=== PATIENT | female | born 1960 | race Caucasian/White ===

== ENCOUNTER 2018-12-23 12:58 | Inpatient (IN) ==
--- NOTE | 2018-12-23 13:30 | Diag Imaging Result Doc PS360 ---
EXAM: FLAT/UPRIGHT ABD/1 VIEW CHEST HISTORY: abdominal pain/constipation TECHNIQUE: Flat and upright with chest, three views COMPARISON: None. FINDINGS: The lungs are well expanded. No pneumonia. No cardiomegaly. No free air beneath the diaphragm. There is a catheter in the mid abdomen. Several air-fluid levels in the upper abdomen. There is air in the distal colon. No organomegaly. Mild scoliosis with degenerative spine changes. There are surgical clips overlying the right upper quadrant and pelvis. IMPRESSION: Ileus versus partial obstruction. Electronically signed by Rocco Osei 12/23/2018 1:27 PM
[2018-12-23 13:37] LABS: BASO# 0.03 X1000 (0.0-0.2); BASO% 0.4 % (0.0-0.8); EOS% 1.2 % (0.0-10.0); HEMATOCRIT 42.4 % (37.0-47.0); HEMOGLOBIN 14.6 g/dL (12.0-16.0); LYMPH# 0.68 X1000 (1.2-3.4); LYMPH% 8.2 % (20.5-51.1); MCH 28.9 PG (27-31); MCHC 34.4 g/dL (33-37); MCV 83.8 FL (81-99); MONO# 0.38 X1000 (0.11-0.59); MONO% 4.6 % (1.7-9.3); MPV 10.2 FL (7.4-10.4); NEUT# 7.07 X1000 (1.4-6.5); NEUT% 85.6 % (42.2-75.2); PLT 185 X1000 (130-400); RBC 5.06 XMIL (4.2-5.4); RDW 12.9 % (11.5-14.5); WBC 8.26 X1000 (4.8-10.8)
[2018-12-23 14:08] LABS: AGAP 14; ALB/GLOB RATIO 1.4; ALBUMIN 4.5 g/dL (3.5-5.0); ALKALINE PHOSPHATASE 377 U/L (32-104); AMYLASE 73 U/L (20-200); BUN 12 mg/dL (8-22); CALCIUM 9.5 mg/dL (8.8-10.2); CHLORIDE 99 mmol/L (98-107); COSMO 271; CREATININE 0.8 mg/dL (0.5-0.9); ESTIMATED GFR > 60; GLUCOSE 127 mg/dL (70-104); GOT 323 U/L (10-30); GPT 368 U/L (10-36); LIPASE 23 U/L (13-60); POTASSIUM 4.2 mmol/L (3.5-5.1); SODIUM 135 mmol/L (136-145); TCO2 22 mmol/L (25-35); TOTAL BILIRUBIN 0.48 mg/dL (0.20-1.00); TOTAL PROTEIN 7.8 g/dL (6.3-8.3)
[2018-12-23] MEDS ORDERED: NS 1,000 ML IV ONE ×2 (14:10→16:00)
[2018-12-23] MEDS ORDERED: ZOFRAN IV ONE (14:10)
[2018-12-23] MEDS ORDERED: TORADOL IV ONE (14:11)
--- NOTE | 2018-12-23 15:49 | Diag Imaging Result Doc PS360 ---
CT ABD/PELVIS W/IV CONT ONLY - 12/23/2018 INDICATION: BOWEL OBSTRUCTION COMPARISON: None FINDINGS: The lung bases are clear and the heart size is normal. There is a lap band in normal-appearing position. The colon is moderately dilated diffusely and very fluid-filled. No definite mass or stricture. Much of the small bowel is completely collapsed. No abnormal small bowel dilation. There is trace perihepatic fluid. There are cholecystectomy clips. No significant biliary dilation. The liver, pancreas, spleen, adrenals, and kidneys are normal. Uterus is absent. Urinary bladder is normal. There are moderate degenerative changes of the spine. No acute or suspicious bony lesion. IMPRESSION: 1. Significant diffuse fluid dilation of the colon. This may represent ileus or secretory condition such as diarrhea. Correlate clinically. 2. Trace perihepatic ascites of uncertain significance or cause. This exam was performed using automated exposure control, adjustment of mA or kV according to patient size, and/or use of iterative reconstruction technique Electronically signed by Jose Ramon Smart 12/23/2018 3:47 PM
[2018-12-23] MEDS ORDERED: MORPHINE IV ONE ×2 (15:53→17:58)
--- NOTE | 2018-12-23 17:00 | PROVIDER DOCUMENTATION ---
This chart was entered by Gabby Lal Scribe, acting as scribe for Gage Ortiz MD. HPI-Abdominal Pain/GI Problem - General Chief Complaint: Post Op Complaint Stated Complaint: RIGHT SIDE PAIN, POSS POST OP COMPLAINT Time Seen by Provider: 12/23/18 14:08 Source: patient Allergies/Adverse Reactions: Patient Allergies Allergy/AdvReac Type Severity Reaction Status Date / Time latex AdvReac ITCHING Verified 12/19/18 05:32 Home Medications: Home Medication List Medication Instructions Recorded Confirmed Last Taken Type Citalopram [Celexa] 20 mg PO DAILY 09/16/18 12/19/18 12/18/18 08:00 History Estradiol [Estrace] 1 mg PO DAILY 09/16/18 12/19/18 12/18/18 08:00 History Gabapentin [Neurontin] 800 mg PO BID 09/16/18 12/19/18 12/18/18 20:00 History Linaclotide [Linzess] 290 mcg PO DAILY 09/16/18 12/19/18 12/18/18 08:00 History Mirabegron [Myrbetriq] 25 mg PO DAILY 09/16/18 12/19/18 12/18/18 08:00 History Multivitamin [Multivitamins] 1 tab PO DAILY 09/16/18 12/19/18 12/18/18 08:00 History Soy Isofla/Blk Cohosh/Mag Bark 1 dose PO DAILY 09/16/18 12/19/18 12/18/18 08:00 History [Estroven 155 mg Capsule] Sumatriptan Subq [Imitrex Subq] 1 dose SQ PRN PRN 09/16/18 12/19/18 11/21/18 History Sumatriptan Succinate [Imitrex] 100 mg PO PRN PRN 09/16/18 12/19/18 12/18/18 08:00 History Topiramate [Topamax] 100 mg PO DAILY 09/16/18 12/19/18 12/18/18 20:00 History Venlafaxine [Effexor] 75 mg PO DAILY 09/16/18 12/19/18 12/18/18 08:00 History Aspirin 81 mg PO DAILY 12/11/18 12/19/18 12/18/18 08:00 History Fludrocortisone [Florinef] 0.1 mg PO DAILY 12/11/18 12/19/18 12/18/18 08:00 History Multivit-Min/Iron/Folic/Buc272 1 ea PO DAILY 12/11/18 12/19/18 12/18/18 08:00 History [Hair, Skin and Nails Caplet] Docusate Sodium [Colace] 100 mg PO BID #30 cap 12/19/18 Unknown Rx Hydrocodone/APAP 7.5 mg/325 mg 1 ea PO Q6H PRN PRN #20 tab 12/19/18 Unknown Rx [[place]-7.5] Ondansetron HCl [Zofran] 4 mg PO Q4-6H PRN PRN #10 tab 12/19/18 Unknown Rx - History of Present Illness-ABD Nature of Presenting Problems: Patient is a 58 year old female who presents with generalized abdominal pain, nausea, vomiting and constipation. Patient states having gallbladder surgery [address] Echavarria. Reports she has not had a bowel movement in 4 days. Denies taking norco today. Abdominal Pain Onset Location: reports: generalized abdomen Pain Radiation: reports: no radiation Quality of Pain: reports: aching Severity in ED: reports: moderate Onset/Duration: reports: gradual Timing: reports: still present, getting worse Associated Symptoms: reports: constipation, nausea, vomiting Last BM: 4 days ago Dark Stools Present?: reports: none noticed Rectal Bleeding: reports: none Bruising or Bleeding Gums?: No Similar Symptoms Previously?: Yes Recently seen or treated by another doctor?: Yes Review of Systems - Adult - REVIEW OF SYSTEMS - ADULT Constitutional: reports: no symptoms reported. denies: chills, fever, fatique Eyes: reports: no symptoms reported Ears, Nose, Mouth & Throat: reports: no symptoms reported Cardiovascular: reports: no symptoms reported Respiratory: reports: no symptoms reported Gastrointestinal: reports: see HPI, abdominal pain (generalized), constipation, nausea, vomiting. denies: diarrhea Genitourinary: reports: no symptoms reported Musculoskeletal: reports: no symptoms reported. denies: back pain, muscle aches, neck pain Integumentary: reports: no symptoms reported Neurological: reports: no symptoms reported Psychiatric: reports: no symptoms reported Endocrine: reports: no symptoms reported Hematologic/Lymphatic: reports: no symptoms reported Allergic/Immunologic: reports: no symptoms reported All Other Systems: Reviewed and Negative Past History - Adult - PAST MEDICAL HISTORY-ADULT Review of Records: reports: Old Records Reviewed, Nursing Assessment Review, Medications Reviewed, Social history reviewed & non-contributory. Major Childhood Illnesses: reports: denies history Cardiovascular: reports: denies history Respiratory: reports: denies history Gastrointestinal: reports: denies history Obstetrical/Gynecological: reports: denies history Genitourinary: reports: denies history Musculoskeletal: reports: denies history Neurological: reports: headaches/migraines Psychiatric: reports: denies history Endocrine/Immune: reports: denies history Other Conditions: reports: denies history - PRIOR SURGERIES/PROCEDURES Surgical/Procedure History: reports: reviewed, not pertinent - IMMUNIZATION STATUS Childhood Immunizations: See Nurse Assessment Flu Vaccine: See Nurse Assessment - FAMILY HISTORY Family History: reviewed, not pertinent - SOCIAL HISTORY Smoking: denies Substance Use: denies Living Situation: family Physical Exam-General - PHYSICAL EXAM-ADULT Initial Vital Signs Reviewed: Yes - CONSTITUTIONAL General Appearance: alert, mild distress. negative: lethargic, slow to respond - HEAD, EARS, NOSE, MOUTH & THROAT HENMT: normocephalic/atraumatic, other (mildly dry mucous membranes). negative: angioedema, hearing deficit - RESPIRATORY Respiratory: chest non-tender, lungs clear, normal breath sounds. negative: rhonchi, wheezing - CARDIOVASCULAR Cardiovascular: normal peripheral pulses, regular rate, rhythm. negative: tachycardia, systolic murmur - GASTROINTESTINAL (ABDOMEN) Abdominal Exam: abnormal bowel sounds (hypoactive), tenderness (diffuse), other (well healing surgical sites with surrounding ecchymosis. no erythema or drainage present.). negative: guarding, rebound - SKIN Integumentary: normal color, normal turgor, warm/dry. negative: cyanosis, ecchymosis, erythema, jaundice - NEUROLOGIC Neurologic: grossly normal. negative: aphasia, facial droop - PSYCHIATRIC Psych/Mental Status: normal mood/affect, oriented x 3. negative: anxious Progress - PLAN OF CARE/RESULTS Progress/Plan/Lab Results: Vital Signs - 8 hr 12/23/18 13:05 Temperature 98.2 F Pulse Rate 86 Respiratory Rate 20 Blood Pressure 110/76 O2 Sat by Pulse Oximetry 98 Laboratory Results - last 24 hr 12/23/18 12/23/18 13:12 13:12 WBC 8.26 RBC 5.06 Hgb 14.6 Hct 42.4 MCV 83.8 MCH 28.9 MCHC 34.4 RDW Std Deviation 12.9 Plt Count 185 MPV 10.2 Immature Gran % (Auto) 0.0 Neut % (Auto) 85.6 H Lymph % (Auto) 8.2 L [place] % (Auto) 4.6 Eos % (Auto) 1.2 Baso % (Auto) 0.4 Immature Gran # (Auto) 0.00 Neut # (Auto) 7.07 H Lymph # (Auto) 0.68 L [place] # (Auto) 0.38 Eos # (Auto) 0.10 Baso # (Auto) 0.03 Sodium 135 L Potassium 4.2 Chloride 99 Carbon Dioxide 22 L Anion Gap 14 BUN 12 Creatinine 0.8 Estimated GFR/1.73 m2 > 60 BUN/Creatinine Ratio 15 Glucose 127 H Calculated Osmolality 271 Calcium 9.5 Total Bilirubin 0.48 AST 323 H ALT 368 H Alkaline Phosphatase 377 H Total Protein 7.8 Albumin 4.5 Globulin 3.3 Albumin/Globulin Ratio 1.4 Amylase 73 Lipase 23 Orders Category Date Time Status NPO Diet 12/23/18 13:[address] ABD/PELVIS W/IV CONT ONLY [CT] Stat Exams 12/23/18 14:11 Ordered FLAT/UPRIGHT ABD/1 VIEW CHEST [RAD] Stat Exams 12/23/18 13:10 Completed AMYLASE [CHEM] Stat Lab 12/23/18 13:12 Completed CBC WITH ELECTRONIC DIFF [HEME] Stat Lab 12/23/18 13:12 Completed COMPREHENSIVE METABOLIC PANEL [CHEM] Stat Lab 12/23/18 13:12 Completed LIPASE [CHEM] Stat Lab 12/23/18 13:12 Completed URINALYSIS W/POSS RFLX CULT [URINALYSIS] Stat Lab 12/23/18 13:10 Uncollected 0.9% Sodium Chloride Inj [Ns] 1,000 ml Med 12/23/18 14:10 Active IV 999 mls/hr Ketorolac [Toradol] Med 12/23/18 14:11 Discontinued 30 mg IV NOW ONE Ondansetron [Zofran] Med 12/23/18 14:10 Discontinued 4 mg IV NOW ONE Result Diagrams: 12/23/18 13:12 12/23/18 13:12 - XRAY 1 XRAY Study: Chest, Abdomen Impression: See EMR Report ( EXAM: FLAT/UPRIGHT ABD/1 VIEW CHEST HISTORY: abdominal pain/constipation TECHNIQUE: Flat and upright with chest, three views COMPARISON: None. FINDINGS: The lungs are well expanded. No pneumonia. No cardiomegaly. No free air beneath the diaphragm. There is a catheter in the mid abdomen. Several air-fluid levels in the upper abdomen. There is air in the distal colon. No organomegaly. Mild scoliosis with degenerative spine changes. There are surgical clips overlying the right upper quadrant and pelvis. IMPRESSION: Ileus versus partial obstruction. Electronically signed by Rocco Osei 12/23/2018 1:27 PM 12/23/18 1327 Interpreting Physician: Rocco Osei MD Dictated Date/Time: 12/23/18 1326 cc: Gage Ortiz MD; Aaron Echavarria MD) - CT/MRI 1 CT Study: Abdomen, Pelvis Impression: See EMR Report ( CT ABD/PELVIS W/IV CONT ONLY - 12/23/2018 INDICATION: BOWEL OBSTRUCTION COMPARISON: None FINDINGS: The lung bases are clear and the heart size is normal. There is a lap band in normal-appearing position. The colon is moderately dilated diffusely and very fluid-filled. No definite mass or stricture. Much of the small bowel is completely collapsed. No abnormal small bowel dilation. There is trace perihepatic fluid. There are cholecystectomy clips. No significant biliary dilation. The liver, pancreas, spleen, adrenals, and kidneys are normal. Uterus is absent. Urinary bladder is normal. There are moderate degenerative changes of the spine. No acute or suspicious bony lesion. IMPRESSION: 1. Significant diffuse fluid dilation of the colon. This may represent ileus or secretory condition such as diarrhea. Correlate clinically. 2. Trace perihepatic ascites of uncertain significance or cause. This exam was performed using automated exposure control, adjustment of mA or kV according to patient size, and/or use of iterative reconstruction technique Electronically signed by Jose Rmaon Smart 12/23/2018 3:47 PM 12/23/18 2607 Interpreting Physician: Jose Ramon Smart MD Dictated Date/Time: 12/23/18 4510 cc: Gage Ortiz MD; Aaron Echavarria MD) - CONSULTS/PCP/HOSPITALIST Notification #1 *Consult/PCP/Hospitalist*: Dr. Echavarria Time Discussed: 14:20 Reason/Comments: Dr. Ortiz consulted with Dr. Echavarria about patient. Consult Disposition: Will see in ED (after clinic), other (order CT. do not place NG tube.) #2 Consult: Dr. Echavarria Time Discussed: 16:57 Reason/Comments: Dr. Ortiz consulted with Dr. Echavarria about patient. Consult Disposition: Admit Departure - Departure Date of Disposition Decision: 12/23/18 Time of Disposition Decision: 16:58 DIAGNOSIS: Ileus Disposition: ADMITTED INPATIENT 09 Certified Medical Emergency: Emergent Condition: Fair Referrals and Follow-Ups: Aaron Echavarria MD [Primary Care Provider] - - Critical Care Note This patient required my direct & personal management of CC.: No Attestation - Physician/ ESTHELA Attestation The physician spent face to face time with patient:: Yes Advanced Practice Provider documentation review:: Supervising physician onsite and consulted in the evaluation and care of this patient. The physician did have a face to face encounter with the patient. This chart was documented by the indicated scribe, (Gabby Lal Scribe) and accurately reflects the services I performed and decisions made by me, Gage Zambrano MD, as attested by the provider's signature.
[2018-12-23] MEDS ORDERED: MORPHINE ONE (18:03)
[2018-12-23] MEDS: DILAUDID IV PRN ×2 (18:53→21:49)
--- NOTE | 2018-12-23 20:35 | HISTORY AND PHYSICAL ---
DATE: 12/23/2018 HPI: A 58-year-old female who is recently status post cholecystectomy on end of last week on Saturday. She did well over the weekend, developed crampy abdominal pains over the course the day, felt as though she needed to have bowel movement, she took 2 bottle of magnesium citrate multiple enemas with no results came the ER. She denies any fevers. She did have an episode of emesis after 2nd bottle magnesium citrate. Denies any jaundice, her urine has been normal color. No fevers, no tachycardia emergency department she is hemodynamically stable. She did receive some fluids had a CT scan, laboratory workup but overall been somewhat unrevealing. MEDICAL HISTORY: She does have history of anxiety, depression, chronic pain, degenerative joint disease. She also has had vasovagal and orthostatic hypertension. SURGICAL HISTORY: She recently status post arthroscopic knee surgery, carpal tunnel, Lap-Band, hysterectomy, knee replacement and had a lumbar laminectomy. Cholecystectomy. FAMILY HISTORY: Was reviewed, noncontributory. SOCIAL HISTORY: No tobacco, alcohol, or drugs . REVIEW OF SYSTEMS: Ten point negative otherwise. EXAM: She is afebrile. Pulse in the 80s, blood pressure 129/73, O2 saturation 100% .General: She appears uncomfortable but no acute distress . HEENT: No scleral icterus, no cervical mass. Cardiovascular: Normal rate. Pulmonary: No increased work of breathing. Abdomen: Soft. She has some voluntary guarding that is intermittent, her incisions are healing well. Appropriate amount of ecchymosis. Peripheral vascular: Otherwise well perfused, no lower extremity edema. She has well-healed left knee incision. Integument: Is warm and dry without jaundice. Psychiatric: Somewhat anxious appearing. Neurologic: No gross deficits . LAB: White count 8, hematocrit 42, platelets 185,000, creatinine 0.8, sodium little low at 135, bilirubin is normal 0.48, AST, ALT mildly elevated at 323 and 368, alkaline phosphatase 377, amylase, lipase normal. I reviewed a CT scan her abdomen and pelvis with p.o. and IV contrast that shows diffuse dilation of the colon, no obvious free fluid, no free air. Her incisions are healing well I do not see a fluid collection in the gallbladder fossa. No significant intrahepatic or distal biliary dilation. There is Lap-Band changes as well. ASSESSMENT AND PLAN: 58-year-old female with abdominal discomfort and obstipation following laparoscopic cholecystectomy with cholangiogram. Liver function tests are appropriate I would say with no elevation of bilirubin, no lipase, white count is normal on exam. I do not think she has namita peritonitis. Possible that this is colicky pain from resolving ileus. Will follow her with bowel rest, IV hydration, pain medicine, antiemetics next 24 hours. If she fails to improve we may need to perform diagnostic laparoscopy to rule out acute bile leak although I think this is unlikely at this point but possible. I discussed all these scenarios with family, will continue follow her closely. I started back on appropriate home medications. cc: Ligia Echavarria MD MTDD
[2018-12-23 20:43] LABS: URINE SOURCE CLEAN CATCH
[2018-12-23 20:48] LABS: BILIRUBIN URINE NEGATIVE (NEGATIVE); BLOOD URINE NEGATIVE (NEGATIVE); COLOR YELLOW; GLUCOSE URINE NEGATIVE (NEGATIVE); KETONE URINE TRACE mg/dL (NEGATIVE); LEUKOCYTES URINE NEGATIVE (NEGATIVE); NITRITE URINE NEGATIVE (NEGATIVE); PH URINE 8.5; PROTEIN URINE TRACE mg/dL (NEGATIVE); SP GRAVITY URINE 1.043; TURBIDITY URINE CLEAR (CLEAR); UROBILINOGEN URINE NORMAL (NORMAL)
[2018-12-23 20:51] LABS: UR EPITHELIAL CELLS <10 /HPF (<10); URINE BACTERIA NEGATIVE /HPF; URINE RBC <10 /HPF (<10); URINE WBC <10 /HPF (<10)
[2018-12-23 21:03] LABS: URINE CRYSTALS NONE SEEN
[2018-12-23] MEDS: NEURONTIN PO SCH (21:40)
[2018-12-23] MEDS: PRILOSEC PO SCH (21:40)
[2018-12-23] MEDS: ROBAXIN 1,000 MG in NS 50 ML IV SCH (21:41)
[2018-12-23] MEDS: ZOFRAN IV PRN (21:49)
[2018-12-24] MEDS: DILAUDID IV PRN ×8 (00:48→22:31)
[2018-12-24] MEDS: ZOFRAN IV PRN (03:51)
[2018-12-24] MEDS: ROBAXIN 1,000 MG in NS 50 ML IV SCH ×3 (06:22→21:39)
[2018-12-24] MEDS ORDERED: DILAUDID IV PRN ×2 (06:48→07:29)
[2018-12-24] MEDS: ZOSYN 3.375 GM in NS 50 ML IV SCH ×3 (07:35→19:32)
[2018-12-24] MEDS: FLORINEF PO SCH (08:00)
[2018-12-24] MEDS: TOPAMAX PO SCH (08:00)
[2018-12-24] MEDS: PRILOSEC PO SCH ×3 (08:00→21:39)
[2018-12-24] MEDS: NEURONTIN PO SCH ×3 (08:00→21:40)
[2018-12-24] MEDS: EFFEXOR PO SCH (08:00)
[2018-12-24] MEDS: CELEXA PO SCH (08:00)
[2018-12-24] MEDS ORDERED: FENTANYL ONE (08:30)
[2018-12-24] MEDS ORDERED: LR 1,000 ML ONE (08:34)
[2018-12-24] MEDS ORDERED: MARCAINE 0.25% PF/EPI 1:200,000 ONE (08:34)
[2018-12-24] MEDS ORDERED: XYLOCAINE-MPF 2% ONE (08:43)
[2018-12-24] MEDS ORDERED: DIPRIVAN 1% ONE (08:43)
[2018-12-24] MEDS ORDERED: QUELICIN (DOSE) ONE (08:43)
[2018-12-24] MEDS ORDERED: ZEMURON ONE (09:03)
[2018-12-24] MEDS ORDERED: ZOFRAN ONE (09:41)
[2018-12-24] MEDS ORDERED: DECADRON ONE (09:41)
[2018-12-24] MEDS ORDERED: TORADOL ONE (09:43)
[2018-12-24] MEDS ORDERED: ROBINUL ONE (09:49)
[2018-12-24] MEDS ORDERED: NEOSTIGMINE ONE (09:50)
--- NOTE | 2018-12-24 10:21 | GENERAL SURGERY PROGRESS NOTE ---
DATE: 12/24/2018 SUBJECTIVE: Persistent pain overnight. No fevers no tachycardia. Blood pressures have been 120s is 130s. Pain is somewhat alleviated with Dilaudid but she is asking for it frequently. She is having bowel function, no vomiting. OBJECTIVE: On exam she appears uncomfortable, but in no acute distress. Cardiovascular normal rate. Abdomen is soft. She is tender throughout but no namita peritonitis. Incisions are intact. LABORATORY DATA: Her labs have not resulted yet this morning. ASSESSMENT/PLAN: 58-year-old female, now 5 days post cholecystectomy in for biliary dyskinesia. She is having worsening abdominal pain concerning for possible bile leak, although nothing obvious on her CT scan. Her bilirubin is normal. AST, ALT are mildly elevated. We discussed risks of bleeding, infection, damage to surrounding structures, conversion to open and possible need for ERCP and the anticipation of drain placement. She understands all this and consents to diagnostic laparoscopy with drain placement. We will go to the operating room this morning and I have stared on antibiotics. Further disposition pending findings at time of surgery. cc: Ligia Echavarria MD
[2018-12-24] MEDS: DILAUDID ONE ×2 (10:24→10:35)
[2018-12-24 11:58] LABS: HEMATOCRIT 36.1 % (37.0-47.0); HEMOGLOBIN 12.1 g/dL (12.0-16.0); MCH 28.7 PG (27-31); MCHC 33.5 g/dL (33-37); MCV 85.7 FL (81-99); MPV 10.1 FL (7.4-10.4); RBC 4.21 XMIL (4.2-5.4); RDW 13.1 % (11.5-14.5); WBC 8.11 X1000 (4.8-10.8)
[2018-12-24 12:30] LABS: AGAP 8; ALB/GLOB RATIO 1.4; ALBUMIN 3.4 g/dL (3.5-5.0); ALKALINE PHOSPHATASE 287 U/L (32-104); BUN 7 mg/dL (8-22); CALCIUM 8.1 mg/dL (8.8-10.2); CHLORIDE 109 mmol/L (98-107); COSMO 279; CREATININE 0.7 mg/dL (0.5-0.9); ESTIMATED GFR > 60; GLUCOSE 132 mg/dL (70-104); GOT 94 U/L (10-30); GPT 196 U/L (10-36); MAGNESIUM 2.2 mg/dL (1.5-2.7); POTASSIUM 3.8 mmol/L (3.5-5.1); SODIUM 140 mmol/L (136-145); TCO2 23 mmol/L (25-35); TOTAL BILIRUBIN 1.05 mg/dL (0.20-1.00); TOTAL PROTEIN 5.9 g/dL (6.3-8.3)
[2018-12-24] MEDS: LOVENOX SUBQ SCH (13:21)
[2018-12-24] MEDS ORDERED: IMITREX SUBQ INJ PRN (15:38)
--- NOTE | 2018-12-24 20:13 | OPERATIVE NOTE ---
PROCEDURE DATE: 12/24/2018 POSTOPERATIVE DIAGNOSES: 1. Abdominal pain status post laparoscopic cholecystectomy. 2. Bile leak from a duct of L[place]chka. PROCEDURE PERFORMED: Diagnostic laparoscopy with abdominal washout and drain placement. ESTIMATED BLOOD LOSS: 5 mL. SPECIMENS: None. ANESTHESIA: General. INDICATIONS: A 58-year-old female who is 5 days post laparoscopic cholecystectomy. Over the last 12-24 hours, she developed worsening abdominal discomfort, but a CT scan showed no obvious bile leak, but her symptoms persisted despite hydration and pain medicine overnight and we elected to pursue exploration. FINDINGS: There was bile located mostly in the right upper quadrant of the abdomen. There were some early adhesions to the gallbladder fossa. There appeared to be good closure of the cystic duct stump with no bile leakage in this location. Common bile duct was visualized and there was no evidence of bile leaking from this area. It seemed to be of normal caliber down to the visualized portions distally. There did appear to be bile staining and bile emanating from the right lateral midportion of the gallbladder fossa well up the gallbladder fossa concerning for an accessory duct here. No gross purulence. The transverse colon, visualized portion of the duodenum all appeared normal. INFORMED CONSENT: Risks, benefits and alternatives were discussed with the patient and she consented to the procedure. OPERATIVE NOTE: Seen preoperatively. Surgical site was confirmed, taken to the operating room and placed supine position. General anesthesia was induced without complication. All bony prominences were padded. Her abdomen was prepped with chlorhexidine solution and draped in usual fashion. After time-out, we accessed the abdomen through the midclavicular subcostal incision, removing the fascial sutures and placed an 11 mm trocar under direct visualization. We then insufflated through this port. We opened our remaining incisions, placing 5 mm trocars at the epigastrium and right lateral, as well as another 11 mm trocar in the periumbilical location. At this point, we suctioned out the bowel, gently took down adhesions to the gallbladder fossa. We inspected the cystic duct stump. This seemed to be healing well with good closure and no bile was emanating from this area. There was some bile stain portion in the right lateral aspect of the gallbladder fossa and when placing this underwater we could visualize a slow trickle of bile from this location. There is no visualized lumen or duct in this location, but we did place 3 clips in this area and felt that we had slowed down this slow trickle of bile to this location. The liver was well perfused bilaterally. I inspected the transverse colon, duodenum. This all appeared okay as well as the remainder of the small bowel. There was no significant staining noted in the other quadrants of the abdomen. We copiously irrigated all quadrants of the abdomen with greater than 4 L of fluid, suctioned this until clear. There appeared to be no further bile leakage. A Clifton drain was placed in the gallbladder fossa and into the [place] recess laterally and was brought out through a lateral trocar site and secured with nylon suture. We desufflated the abdomen, closed the fascia at this midclavicular incision and the one around the umbilicus with interrupted 0 Vicryl sutures. Skin was closed with 4-0 Monocryl. Dermabond was applied. Counts correct. She has woken and transferred to recovery. Her drain output seemed to be more serosanguineous with slight bile tinged in recovery. We transferred to floor. Possible ERCP in the next 24 hours pending drain output. cc: Ligia Echavarria MD
[2018-12-25] MEDS: DILAUDID IV PRN ×8 (02:33→20:49)
[2018-12-25] MEDS: ZOSYN 3.375 GM in NS 50 ML IV SCH ×4 (03:15→20:49)
[2018-12-25] MEDS: ROBAXIN 1,000 MG in NS 50 ML IV SCH ×2 (05:16→14:53)
[2018-12-25 08:08] LABS: AGAP 12; ALB/GLOB RATIO 1.1; ALBUMIN 3.2 g/dL (3.5-5.0); ALKALINE PHOSPHATASE 250 U/L (32-104); BUN 9 mg/dL (8-22); CALCIUM 8.2 mg/dL (8.8-10.2); CHLORIDE 108 mmol/L (98-107); COSMO 281; CREATININE 0.7 mg/dL (0.5-0.9); ESTIMATED GFR > 60; GLUCOSE 89 mg/dL (70-104); GOT 49 U/L (10-30); GPT 134 U/L (10-36); POTASSIUM 3.2 mmol/L (3.5-5.1); SODIUM 142 mmol/L (136-145); TCO2 22 mmol/L (25-35); TOTAL BILIRUBIN 0.66 mg/dL (0.20-1.00); TOTAL PROTEIN 6.1 g/dL (6.3-8.3)
[2018-12-25 08:38] LABS: BASO# 0.02 X1000 (0.0-0.2); BASO% 0.3 % (0.0-0.8); EOS# 0.52 X1000 (0.0-0.7); EOS% 8.4 % (0.0-10.0); HEMATOCRIT 35.3 % (37.0-47.0); HEMOGLOBIN 11.7 g/dL (12.0-16.0); LYMPH# 1.16 X1000 (1.2-3.4); LYMPH% 18.8 % (20.5-51.1); MCH 28.6 PG (27-31); MCHC 33.1 g/dL (33-37); MCV 86.3 FL (81-99); MONO# 0.47 X1000 (0.11-0.59); MONO% 7.6 % (1.7-9.3); MPV 10.4 FL (7.4-10.4); NEUT# 4.01 X1000 (1.4-6.5); NEUT% 64.9 % (42.2-75.2); PLT 141 X1000 (130-400); RBC 4.09 XMIL (4.2-5.4); WBC 6.18 X1000 (4.8-10.8)
[2018-12-25] MEDS: PRILOSEC PO SCH ×2 (09:35→20:50)
[2018-12-25] MEDS: NEURONTIN PO SCH ×3 (09:35→20:50)
[2018-12-25] MEDS: LOVENOX SUBQ SCH (09:36)
[2018-12-25] MEDS: FLORINEF PO SCH ×2 (09:36→09:53)
[2018-12-25] MEDS: TOPAMAX PO SCH (09:52)
[2018-12-25] MEDS: EFFEXOR PO SCH (09:53)
[2018-12-25] MEDS: PERIDEX MT SCH ×2 (09:53→20:50)
[2018-12-25] MEDS: CELEXA PO SCH (09:54)
[2018-12-25] MEDS: NS 1,000 ML IV SCH (12:13)
--- NOTE | 2018-12-25 15:08 | GASTROENTEROLOGY CONSULTATION ---
DATE: 12/25/2018 ATTENDING PHYSICIAN: Dr. Aaron Echavarria. PRIMARY CARE DOCTOR: Dr. Nicholas Echavarria. REASON FOR CONSULTATION: Bile leak. HISTORY OF PRESENT ILLNESS: Ms. Salinas is a 58-year-old female who was admitted on 12/23/2018 for severe abdominal pain. The patient had a cholecystectomy done last Saturday. Postoperatively, she developed constipation. She tried laxatives, including magnesium citrate with partial relief. She continued to have worsening abdominal pain, which woke her up in the middle of the night and prompted her to come to the emergency room to seek care. She was admitted. She was diagnosed with bile leak. She had a diagnostic laparoscopy with abdominal washout and drain placed by Dr. Echavarria on 12/24/2018. She is still putting out bile in her MAINE drain. Gastroenterology is consulted for possible ERCP. PAST MEDICAL HISTORY: Anxiety, depression, chronic pain, degenerative joint disease, has also had vasovagal and orthostatic hypotension. PAST SURGICAL HISTORY: Status post arthroscopic knee surgery, carpal tunnel surgery, lap band done by Dr. Vasquez, EGD done 2 years ago, colonoscopy done [address] Schwartz, hysterectomy, knee replacement, lumbar laminectomy, cholecystectomy last Saturday, and laparoscopy on 12/24/2018. FAMILY HISTORY: Noncontributory. SOCIAL HISTORY: No history of alcohol, tobacco, illicit drugs. She is . She has a very supportive at bedside. REVIEW OF SYSTEMS: Denies any fevers, rigors, chills, chest pain, shortness of breath, dyspnea. Denies any nausea, vomiting, vomiting blood, passing blood in the stools. Does have a history of chronic constipation. She denies any neurologic complaints. She does have chronic arthritis. MEDICATIONS: Her medications in the hospital include chlorhexidine, Celexa, Lovenox, fludrocortisone, gabapentin, Dilaudid, methocarbamol, Prilosec 40 mg p.o. b.i.d., Zofran, sumatriptan, topiramate, Effexor, and Zosyn. She is currently n.p.o. PHYSICAL EXAMINATION: Vital Signs: Temperature 98.5, pulse rate of 72, respiratory rate of 16, blood pressure 116/59, saturating 96% on room air. Body weight of 167 pounds 4 ounces, BMI 28.7. General: This is a moderately-nourished woman, lying in bed in no acute distress. HEENT: Mild pallor. No icterus. Pupils equal, reactive to light. Neck: Supple. Abdomen: She has a drain in the right upper quadrant, draining bilious fluid in the bulb. She does have discomfort in the right upper quadrant. No rebound or guarding. Extremities: No cyanosis, clubbing. Neurologic: Alert, awake, oriented x3. LABORATORY DATA: Hemoglobin and hematocrit 11.7 and 35.3, white count of 6.18, platelet count of 141,000. Sodium 142, potassium 3.2, chloride 108, bicarb 20, anion gap 12, BUN of 9, creatinine 0.7, glucose of 89, calcium 8.2. Total bilirubin is 0.6, AST 49, ALT 134, alkaline phosphatase 250, total protein is 6.2, albumin of 3.2. Urinalysis showing trace protein and trace ketones. Clostridium difficile toxin is negative. Last op note on 12/24/[address] Aaron Echavarria showed the findings were bile leak from the duct of Luschka, diagnostic laparoscopy with abdominal washout and drain placement. Abdominopelvic CT scan done on 12/23/2018 showed significant diffuse fluid dilation of the colon. This may represent ileus or secretory condition/diarrhea. Trace perihepatic ascites of uncertain significance or cause. IMPRESSION AND PLAN: 1. Bile leak. 2. Cholecystectomy last Saturday. 3. Abdominal laparoscopy with abdominal washout and Raul-White drain placement on 12/24/2018. 4. Elevated liver enzymes. 5. History of constipation. 6. Mild anemia. RECOMMENDATIONS: 1. We will schedule the patient for ERCP tomorrow with Dr. Schwartz. The risks, benefits, indications, and alternatives to ERCP was discussed with the patient and family, and all questions were answered. Will start the patient on IV fluids at 80 mL/h with normal saline. We will keep her on PPIs for GI prophylaxis. She will continue all other home medications. DVT prophylaxis with Lovenox. 2. Pain control. IV Dilaudid as needed. 3. Further recommendations to follow pending the hospital course. The above plans were discussed with the patient and family, and all questions were answered. Please call us with any further questions. cc: TeddyMD Ligia Garcia MD [facility]New
[2018-12-25] MEDS: ZOFRAN IV PRN (17:39)
--- NOTE | 2018-12-25 20:46 | GENERAL SURGERY PROGRESS NOTE ---
DATE: 12/25/2018 SUBJECTIVE: Pain is much better. No fevers. No tachycardia tonight. OBJECTIVE: Abdomen is soft. Incision intact. MAINE drain does have some fresh bile in it. White count is normal. Hematocrit 35, bilirubin 0.66. AST, ALT, and alkaline phosphatase are downtrending. ASSESSMENT AND PLAN: A 58-year-old female with bile leak from the duct of Luschka, status post washout and drain placement. I have talked to Dr. Castle in consult. He plans for ERCP tomorrow. Otherwise, we will continue on antibiotics, clear liquids until midnight which will make her NPO. She is on prophylactic Lovenox, which we will hold for her procedure tomorrow, but she has received doses since she has been here. Long discussion both her and the family. We will continue current management. cc: Ligia Echavarria MD
[2018-12-26] MEDS: NS 1,000 ML IV SCH ×2 (01:13→18:30)
[2018-12-26] MEDS: DILAUDID IV PRN ×5 (01:14→18:30)
[2018-12-26] MEDS: ROBAXIN 1,000 MG in NS 50 ML IV SCH ×3 (01:30→16:28)
[2018-12-26] MEDS: ZOSYN 3.375 GM in NS 50 ML IV SCH ×4 (03:43→18:30)
[2018-12-26] MEDS ORDERED: DIPRIVAN 1% ONE ×3 (13:04→13:46)
[2018-12-26] MEDS ORDERED: XYLOCAINE-MPF 2% ONE (13:04)
[2018-12-26] MEDS ORDERED: FENTANYL ONE (13:04)
[2018-12-26] MEDS ORDERED: ZOFRAN ONE (13:08)
[2018-12-26] MEDS ORDERED: GLUCAGON ONE (13:21)
--- NOTE | 2018-12-26 14:05 | Diag Imaging Result Doc PS360 ---
ERCP-BILIARY AND PANCREATIC - 12/26/2018 INDICATION: Bile leak TECHNIQUE: The exam was performed by the patient's endoscopist. Total fluoroscopy time was eight minutes 20 seconds. Two images were obtained. COMPARISON: CT from 12/23/2018 FINDINGS: There is some contrast in one of these ducts but it is unclear which one. This may well be the main pancreatic duct. A common bile duct stent was apparently placed in normal position. IMPRESSION: No complication. Electronically signed by Jose Ramon Smart 12/26/2018 2:02 PM
[2018-12-26] MEDS: FLORINEF PO SCH (14:29)
[2018-12-26] MEDS: EFFEXOR PO SCH (14:31)
[2018-12-26] MEDS: PERIDEX MT SCH ×2 (14:44→22:02)
[2018-12-26] MEDS: NEURONTIN PO SCH ×2 (14:44→22:01)
[2018-12-26] MEDS: CELEXA PO SCH (14:44)
[2018-12-26] MEDS: PRILOSEC PO SCH ×2 (14:44→22:01)
--- NOTE | 2018-12-26 15:20 | GENERAL SURGERY PROGRESS NOTE ---
DATE: 12/26/2018 SUBJECTIVE: Still having some discomfort, but overall feels okay. No fevers. No tachycardia. OBJECTIVE: Abdomen is soft. Drain still has bile, only approximately 220 recorded in the last 24 hours. She is voiding. ASSESSMENT AND PLAN: A 58-year-old female with a duct of Luschka leak, status post laparoscopic cholecystectomy and abdominal washout and drain placement. Plan is for ERCP today. We do have her on antibiotics, but no signs of infection. We will advance her diet following. Plan for home in the next 24 to 48 hours with her drain. cc: Ligia Echavarria MD
[2018-12-26] MEDS: ESTRACE PO SCH (16:27)
--- NOTE | 2018-12-26 19:09 | OPERATIVE NOTE ---
PROCEDURE DATE: 12/26/2018 PROCEDURE: 1. Endoscopic retrograde cholangiopancreatography. 2. Endoscopic sphincterotomy. 3. Endoscopic stent placement. PREOPERATIVE DIAGNOSIS: Bile leak. POSTOPERATIVE DIAGNOSES: 1. Minimal bile leak from gallbladder foci. 2. Sphincterotomy and stent placement. 3. Preop diet. DESCRIPTION OF PROCEDURE: After informed consent and adequate intravenous sedation, the scope introduced the esophagus, stomach, and duodenum. Ampulla appears normal. In the first 2 attempts there is a pancreatogram. At this point, with the guidewire as the stent, cholangiogram was obtained. I saw minimal contrast entering the drain tube. I could not see exact area of leak. Anyway, at this point wide sphincterotomy was done and a 10-Mongolian, 7 [address] the way across into the right common hepatic. The scope is withdrawn. The patient tolerated the procedure well without any immediate complications. cc: MD Ligia Roberts MD
[2018-12-26] MEDS ORDERED: TOPAMAX PO SCH (21:00)
[2018-12-27] MEDS: ROBAXIN 1,000 MG in NS 50 ML IV SCH (02:28)
[2018-12-27] MEDS: NS 1,000 ML IV SCH (02:29)
[2018-12-27] MEDS: ZOSYN 3.375 GM in NS 50 ML IV SCH (03:50)
[2018-12-27] MEDS: DILAUDID IV PRN (04:05)
[2018-12-27 07:56] VITALS: BP 125/77
--- NOTE | 2018-12-27 09:18 | PROGRESS NOTE ---
DATE: 12/27/2018 SUBJECTIVE: Ms. Kenney is a 58-year-old white female, patient of Dr. Echavarria, who underwent a laparoscopic cholecystectomy and had the complication of a bile leak. Yesterday, she underwent an ERCP per Dr. Schwartz with stent placement. She has a Clifton drain in place and it is only draining serous fluid. This morning, she is awake, appears to be comfortable. OBJECTIVE: Her heart rate is 73, blood pressure 125/77, O2 saturation 99%. She is afebrile. She is voiding without difficulty. Her urine output is adequate. She is on IV Zosyn. PLAN: We will advance her diet and as she tolerates this, will decide about discharge to her home. I am not sure if we will discharge her with her Clifton drain in place or not. We will see about the volume of drainage. cc: MD Ligia Bush MD
[2018-12-27] MEDS: ESTRACE PO SCH (09:34)
[2018-12-27] MEDS: CELEXA PO SCH (09:34)
[2018-12-27] MEDS: EFFEXOR PO SCH (09:34)
[2018-12-27] MEDS: NEURONTIN PO SCH (09:34)
[2018-12-27] MEDS: PRILOSEC PO SCH (09:34)
[2018-12-27] MEDS: FLORINEF PO SCH (09:34)
[2018-12-27] MEDS: PERIDEX MT SCH (09:34)
--- NOTE | 2019-01-10 19:19 | DISCHARGE SUMMARY ---
ADMISSION DATE: 12/23/2018 DISCHARGE DATE: 12/27/2018 ADMITTING DIAGNOSES: 1. Abdominal pain, discharge bile leak from duct of Luschka. 2. Diagnostic laparoscopy with abdominal washout and drain placement. PROCEDURE PERFORMED: Endoscopic retrograde cholangiopancreatogram with stent placement on 12/24/2018. HISTORY OF PRESENT ILLNESS: This is a 58-year-old female who had a cholecystectomy 5 days prior to this admission. She developed worsening abdominal pain consistent with bile leak. HOSPITAL COURSE: She was taken on the day following her admission, that evening, for diagnostic laparoscopy. We confirmed a bile leak from the gallbladder fossa. The drain was placed and she was admitted for antibiotics. She was taken the following day for ERCP. Her drain output significantly decreased [*]. She is able to tolerate a diet. Her pain is improved. LFTs remain normal. Incisions are intact. She was felt safe for discharge. Follow up appointment is with me for drain removal in the next 72 hours. DISPOSITION: Home to self-care. DISCHARGE CONDITION: Good. DISCHARGE DIET: Low-fat GI soft. cc: Ligia Echavarria MD
== END 2018-12-27 11:59 | disposition home or self-care (01) | DRG 395 ==
LOC: ED 12:58 → 4N 12:58 → OBSVTOIN 12:59
PROVIDERS: ADMIT Surgery; ATTEND Surgery
PROC: EN.ERCP (2018-12-26 12:58)
CPT/HCPCS: 74022; 74177; 74330; 80053; 81001; 82150; 83690; 83735; 85025; 85027; 87324; 94761; 96361; 96374; 96375; 96376; 99285; A9270; C1769; C2617; J0330; J1100; J1170; J1610; J1650; J1885; J2270; J2405; J2543; J2800; J3010; J3030; J7030; J7120; Q9966; Q9967